=== PATIENT | female | born 1970 | race Caucasian/White ===

== ENCOUNTER → 2017-02-20 | Outpatient (REF) | payer OTHER | LOC: M LAB REF 13:24 | PROVIDERS: ATTEND Physician Assistant Medical | DX: Z12.4 Encounter for screening for malignant neoplasm of cervix (principal) ==

== ENCOUNTER → 2018-09-03 | Outpatient (REF) | payer OTHER | LOC: M LAB REF 13:09 | DX: R19.7 Diarrhea, unspecified (principal) ==

== ENCOUNTER → 2018-09-05 | Outpatient (CLI) | payer OTHER ==
[2018-09-05 09:15] LABS: BASO # 0.2 10^3/uL (0.0-0.2); BASO % 1.1 % (0.0-1.0); EOS # 0.3 10^3/uL (0.0-0.50); EOS % 1.8 % (0.0-3.0); HEMATOCRIT 44.1 % (36.0-47.0); HEMOGLOBIN 15.3 g/dl (12.0-15.5); IMMATURE GRANULOCYTE % 0.3 % (0-3.0); LYMPH # 3.9 10^3/uL (1.5-4.5); MEAN CORPUSCULAR HEMOGLOBIN 32.6 pg (27.0-33.0); MEAN CORPUSCULAR HGB CONC 34.7 g/dl (32.0-36.5); MEAN CORPUSCULAR VOLUME 93.8 fl (80.0-96.0); MONO # 1.3 10^3/uL (0.0-0.8); NEUTROPHILS # 8.3 10^3/uL (1.8-7.7); NEUTROPHILS % 59.8 % (36.0-66.0); PLATELET COUNT, AUTOMATED 397 10^3/uL (150-450); RED CELL DISTRIBUTION WIDTH 12.9 % (11.5-14.5); WHITE BLOOD COUNT 13.9 10^3/uL (4.0-10.0)
[2018-09-05 09:44] LABS: CONTROL LINE HCG INT CTR LINE PRESENT; HCG, SERUM QUALITATIVE NEGATIVE (NEGATIVE)
[2018-09-05 09:56] LABS: CONTROL LINE HPYORI INT CTR LINE PRESENT; H PYLORI QUALITATIVE IgG NEGATIVE (NEGATIVE)
[2018-09-05 10:08] LABS: ANION GAP 8 MEQ/L (8-16); BLOOD UREA NITROGEN 10 MG/DL (7-18); CALCIUM LEVEL 9.1 MG/DL (8.5-10.1); CARBON DIOXIDE LEVEL 27 MEQ/L (21-32); CHLORIDE LEVEL 104 MEQ/L (98-107); CREATININE FOR GFR 0.74 MG/DL (0.55-1.30); FREE T4 0.94 NG/DL (0.76-1.46); GLOMERULAR FILTRATION RATE > 60.0 (>58); GLUCOSE, FASTING 82 MG/DL (70-100); SODIUM LEVEL 139 MEQ/L (136-145); THYROID STIMULATING HORMONE 0.793 uIU/ML (0.358-3.740)
== END ==
LOC: M LAB 08:24
DX: R11.0 Nausea (principal); R19.7 Diarrhea, unspecified
CPT/HCPCS: 84443

== ENCOUNTER → 2018-10-14 | Outpatient (REF) | payer OTHER | LOC: M LAB REF 12:03 | PROVIDERS: ATTEND Physician Assistant | DX: R19.7 Diarrhea, unspecified (principal) ==

== ENCOUNTER → 2019-06-24 | Outpatient (REF) | payer OTHER | LOC: M LAB REF 12:08 | PROVIDERS: ATTEND Physician Assistant | DX: A04.72 Enterocolitis due to Clostridium difficile, not specified as recurrent (principal) ==

== ENCOUNTER 2019-08-18 11:25 | Day surgery (SDC) | payer OTHER ==
[~2019-08-18] VITALS: Ht 175.3 cm; Wt 79.8 kg
[~2019-08-18 11:25] MED LIST: ALIG4CAP PO; FECAL MICROBIOTA PREPARATION 250 ML BTL (J3590) XX ONE
--- NOTE | 2019-08-18 15:00 | ROOR ---
Patient Name: Mariah Burks Procedure Date: 08/18/2019 2:43 PM Date of : 1970 Age: 48 Room: [facility] Gender: Female Note Status: Finalized Procedure: Colonoscopy + Fecal Microbiota Transplant (Bacteriotherapy) Indications: Fecal transplant for treatment of recurrent Clostridium difficile diarrhea Providers: Hussein Baker MD Referring MD: Hermelinda Fritz MD Requesting Provider: Medicines: Monitored Anesthesia Care Complications: No immediate complications. Procedure: Pre-Anesthesia Assessment: - The heart rate, respiratory rate, oxygen saturations, blood pressure, adequacy of pulmonary ventilation, and response to care were monitored throughout the procedure. The Colonoscope was introduced through the anus and advanced to the cecum, identified by appendiceal orifice and ileocecal valve. The colonoscopy was performed without difficulty. The patient tolerated the procedure well. The quality of the bowel preparation was excellent. Findings: The perianal and digital rectal examinations were normal. Non-bleeding internal hemorrhoids were found during retroflexion. The hemorrhoids were small and Grade I (internal hemorrhoids that do not prolapse). Multiple small and large-mouthed diverticula were found in the recto-sigmoid colon, sigmoid colon and descending colon. The exam was otherwise without abnormality on direct and retroflexion views. The decision was made to proceed with fecal microbiota transplant (bacteriotherapy). Donor stool was supplied by [employer] (purchased frozen stool) and thawed as per protocol. Approximately 250 mL of the donor stool was instilled in the cecum. A detailed colonoscopic exam could not be performed upon scope withdrawal secondary to limited visibility from the instilled stool. This precludes the ability to screen for colon cancer, and the patient was made aware of this prior to the procedure. The exam was otherwise without abnormality on direct and retroflexion views. Impression: - Non-bleeding internal hemorrhoids. - Diverticulosis in the recto-sigmoid colon, in the sigmoid colon and in the descending colon. - The examination was otherwise normal on direct and retroflexion views. - The examination was otherwise normal on direct and retroflexion views. - Fecal Microbiota Transplant (Bacteriotherapy) performed in the cecum. - No specimens collected. - The exam was otherwise normal to the cecum. Recommendation: - Patient has a contact number available for emergencies. The signs and symptoms of potential delayed complications were discussed with the patient. Return to normal activities tomorrow. Written discharge instructions were provided to the patient. - Discharge patient to home. - Continue present medications. - Return to referring physician. - Return to GI office at appointment to be scheduled. - The findings and recommendations were discussed with the patient's family. Hussein Baker MD Hussein Baker MD 08/18/2019 3:00:39 PM Electronically signed by Hussein Baker MD Number of Addenda: 0 Note Initiated On: 08/18/2019 2:43 PM Estimated Blood Loss: Estimated blood loss: none.
[2019-08-18] MEDS ORDERED: LIDOCAINE 2% INJ 100 MG/5 ML SDV (FOR ANES.) As Ordered ONE (15:07)
[2019-08-18] MEDS ORDERED: PROPOFOL 200 MG/20 ML VIAL As Ordered ONE (15:07)
[2019-08-18 15:44] VITALS: BP 146/85
== END 2019-08-18 15:53 | disposition home or self-care (01) ==
LOC: M OPP 11:25
PROVIDERS: ATTEND Internal Medicine Gastroenterology
DX: A04.71 Enterocolitis due to Clostridium difficile, recurrent (principal); K57.30 Diverticulosis of large intestine without perforation or abscess without bleeding; K64.0 First degree hemorrhoids; Z79.2 Long term (current) use of antibiotics; F17.210 Nicotine dependence, cigarettes, uncomplicated

== ENCOUNTER → 2019-09-22 | Outpatient (REF) | payer OTHER ==
[~2019-09-22] MED LIST changes: -FECAL MICROBIOTA PREPARATION 250 ML BTL (J3590) XX ONE
== END ==
LOC: M LAB REF 17:09
PROVIDERS: ATTEND Family Medicine
DX: Z11.3 Encounter for screening for infections with a predominantly sexual mode of transmission (principal); N76.0 Acute vaginitis

== ENCOUNTER → 2019-09-24 | Outpatient (CLI) | payer OTHER ==
[2019-09-24 12:17] LABS: HIV 1&2 SCREEN CENTAUR NEGATIVE (NEGATIVE)
[2019-09-24 12:54] LABS: CHLAMYDIA DNA AMPLIFICATION NEGATIVE (NEGATIVE); GC DNA AMPLIFICATION NEGATIVE (NEGATIVE)
== END ==
LOC: M LAB 10:00
PROVIDERS: ATTEND Family Medicine
DX: Z11.3 Encounter for screening for infections with a predominantly sexual mode of transmission (principal)

== ENCOUNTER → 2019-10-13 | Outpatient (REF) | payer OTHER | LOC: M LAB REF 12:41 | PROVIDERS: ATTEND Physician Assistant Medical | DX: Z11.3 Encounter for screening for infections with a predominantly sexual mode of transmission (principal) ==

== ENCOUNTER 2019-10-17 16:48 | Emergency (ER) | payer OTHER ==
[~2019-10-17] VITALS: Ht 175.3 cm; Wt 78.2 kg
[2019-10-17] MEDS ORDERED: OMEP-221 PO (17:03)
[2019-10-17] MEDS ORDERED: GI COCKTAIL 50ML BTL(HYOSCYAMINE/MAALOX/LIDOCAINE VISCOUS)(1:3:1) PO ONE (18:00)
[2019-10-17 18:21] LABS: BASO # 0.1 10^3/uL (0.0-0.2); BASO % 0.9 % (0.0-1.0); EOS # 0.1 10^3/uL (0.0-0.5); EOS % 0.6 % (0.0-3.0); HEMATOCRIT 43.7 % (36.0-47.0); HEMOGLOBIN 14.8 g/dl (12.0-15.5); LYMPH # 3.6 10^3/uL (1.5-5.0); LYMPH % 25.4 % (24.0-44.0); MEAN CORPUSCULAR HEMOGLOBIN 32.8 pg (27.0-33.0); MEAN CORPUSCULAR HGB CONC 33.9 g/dl (32.0-36.5); MEAN CORPUSCULAR VOLUME 96.9 fl (80.0-96.0); MONO # 1.1 10^3/uL (0.0-0.8); MONO % 7.9 % (0.0-5.0); NEUTROPHILS # 9.1 10^3/uL (1.5-8.5); PLATELET COUNT, AUTOMATED 352 10^3/uL (150-450); RED BLOOD COUNT 4.51 10^6/uL (4.00-5.40)
[2019-10-17 18:31] LABS: INR 1.08; PARTIAL THROMBOPLASTIN TIME 25.1 SECONDS (25.0-38.4); PROTHROMBIN TIME 13.7 SECONDS (11.8-14.0)
[2019-10-17 18:50] LABS: ALBUMIN 3.6 GM/DL (3.2-5.2); ALT/SGPT 23 U/L (12-78); BILIRUBIN,DIRECT < 0.1 MG/DL (0.0-0.2); BILIRUBIN,TOTAL 0.3 MG/DL (0.2-1.0); BLOOD UREA NITROGEN 8 MG/DL (7-18); CALCIUM LEVEL 9.2 MG/DL (8.5-10.1); CARBON DIOXIDE LEVEL 30 MEQ/L (21-32); CHLORIDE LEVEL 102 MEQ/L (98-107); CK-MB VALUE MASS < 1.0 NG/ML (<3.6); CPK CREATINE PHOSPHOKINASE 56 U/L (26-192); CREATININE FOR GFR 0.76 MG/DL (0.55-1.30); FREE T4 0.98 NG/DL (0.76-1.46); GLOMERULAR FILTRATION RATE > 60.0 (>58); GLUCOSE, FASTING 72 MG/DL (70-100); LIPASE 111 U/L (73-393); MB/CK RELATIVE INDEX 1.79 (< OR =4); POTASSIUM SERUM 3.8 MEQ/L (3.5-5.1); SODIUM LEVEL 140 MEQ/L (136-145); TOTAL PROTEIN 6.8 GM/DL (6.4-8.2); TROPONIN I < 0.02 NG/ML (< 0.10)
[2019-10-17 23:48] LABS: CK-MB VALUE MASS < 1.0 NG/ML (<3.6); CPK CREATINE PHOSPHOKINASE 46 U/L (26-192); MB/CK RELATIVE INDEX 2.17 (< OR =4); TROPONIN I < 0.02 NG/ML (< 0.10)
[2019-10-18 00:01] VITALS: BP 116/73
--- NOTE | 2019-10-18 08:07 | REP ---
Clinical: Acute chest pain . Comparison: 10/09/2018 . Technique: PA and lateral. Findings: The mediastinum and cardiac silhouette are normal. The lung nascimento are clear and without acute consolidation, effusion, or pneumothorax. The skeletal structures are intact and normal. Impression: 1. No acute cardiopulmonary process. Electronically Signed by Rigoberto Mcmahon MD 10/18/2019 07:58 A
--- NOTE | 2019-10-18 08:36 | ECGEPIP ---
[facility] - ED Test Date: 2019-10-17 Pat Name: RIMMA BURKETT Department: Room: - Gender: Female Outreach Assistant: : 1970 Requested By: Dante Dempsey Order Number: [id number] Reading MD: Dante aJck Measurements Intervals [place] Rate: 65 P: 36 [place]: 152 QRS: 69 QRSD: 89 T: 35 QT: 371 QTc: 388 Interpretive Statements SINUS RHYTHM NO PRIORS FOR COMPARISON Electronically Signed on 10-18-2019 8:36:06 EST by Dante Jack
--- NOTE | 2019-10-18 08:39 | ECGEPIP ---
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
== END 2019-10-18 00:24 | disposition home or self-care (01) ==
LOC: M ED 16:48
DX: R07.9 Chest pain, unspecified (principal); R13.10 Dysphagia, unspecified; Z79.899 Other long term (current) drug therapy; F17.210 Nicotine dependence, cigarettes, uncomplicated

== ENCOUNTER 2019-11-15 12:09 | Day surgery (SDC) | payer OTHER ==
[~2019-11-15] VITALS: Ht 175.3 cm; Wt 78.0 kg
[~2019-11-15 12:09] MED LIST changes: +ANTASUS PO; +FAMO20TA PO; +NS 1,000 ML IV ONE; +OMEP-221 PO
[2019-11-15] MEDS ORDERED: fentaNYL 100 MCG/2 ML INJECTION (J3010) As Ordered ONE (13:38)
[2019-11-15] MEDS ORDERED: LIDOCAINE 2% INJ 100 MG/5 ML SYRINGE As Ordered ONE (13:38)
[2019-11-15] MEDS ORDERED: propofoL 200 MG/20 ML VIAL As Ordered ONE (13:38)
--- NOTE | 2019-11-15 13:51 | ROOR ---
Patient Name: Mariah Burks Procedure Date: 11/15/2019 1:36 PM Date of : 1970 Age: 49 Room: [facility] Gender: Female Note Status: Finalized Procedure: Upper Endoscopy + Biopsies Indications: Dysphagia, Heartburn Providers: Hussein Baker MD Referring MD: Hermelinda Fritz MD Requesting Provider: Medicines: Monitored Anesthesia Care Complications: No immediate complications. Procedure: Pre-Anesthesia Assessment: - The heart rate, respiratory rate, oxygen saturations, blood pressure, adequacy of pulmonary ventilation, and response to care were monitored throughout the procedure. The Endoscope was introduced through the mouth, and advanced to the second part of duodenum. The upper GI endoscopy was accomplished without difficulty. The patient tolerated the procedure well. Findings: The Z-line was variable and was found 40 cm from the incisors. Multiple biopsies were obtained with cold forceps for evaluation to rule out Ware's Esophagus randomly at the gastroesophageal junction. A small hiatal hernia was present. No other significant abnormalities were identified in a careful examination of the stomach. The exam of the duodenum was otherwise normal. Impression: - Z-line variable, 40 cm from the incisors. - Small hiatal hernia. - Multiple biopsies were obtained at the gastroesophageal junction. - The examination was otherwise normal. Recommendation: - Patient has a contact number available for emergencies. The signs and symptoms of potential delayed complications were discussed with the patient. Return to normal activities tomorrow. Written discharge instructions were provided to the patient. - High fiber diet. - Discharge patient to home. - Follow an antireflux regimen. - Continue present medications. - Await pathology results. - Telephone GI clinic for pathology results in 1 week. - Return to referring physician. - The findings and recommendations were discussed with the patient's family. Hussein Baker MD Hussein Baker MD 11/15/2019 1:50:59 PM Electronically signed by Hussein Baker MD Number of Addenda: 0 Note Initiated On: 11/15/2019 1:36 PM Estimated Blood Loss: Estimated blood loss: none.
[2019-11-15 14:05] VITALS: BP 140/83
== END 2019-11-15 14:18 | disposition home or self-care (01) ==
LOC: M OPP 12:09
PROVIDERS: ATTEND Internal Medicine Gastroenterology
DX: K22.8 Other specified diseases of esophagus (principal); K44.9 Diaphragmatic hernia without obstruction or gangrene; R13.10 Dysphagia, unspecified; R12 Heartburn; K21.9 Gastro-esophageal reflux disease without esophagitis; F17.210 Nicotine dependence, cigarettes, uncomplicated; Z79.2 Long term (current) use of antibiotics
CPT/HCPCS: 43239; 88305; J3010

== ENCOUNTER → 2019-11-26 | Outpatient (CLI) | payer OTHER ==
[~2019-11-26] MED LIST changes: +E-Z-GAS II EFFERVESCENT PACKET (SODIUM BICARB./CITRIC ACID/SIMETHICONE) As Ordered ONE; +E-Z-HD 98% w/w 340GM SUSP BTL As Ordered ONE; +E-Z-PAQUE 96% w/w SUSP 176GM BTL As Ordered ONE; -NS 1,000 ML IV ONE
--- NOTE | 2019-11-26 14:38 | REP ---
Examination Requested: Esophagram Barium Swallow Reason For Exam/Comment: Dysphasia/heartburn Esophagram: The procedure was performed MAURIZIO Leon, under the direct supervision of Dr. Beaver. The images were reviewed with Dr. Beaver. A single PA chest x-ray is submitted as a clarifier operator helper film. The superior mediastinal structures are midline. The heart size is within normal limits. The lungs are clear. Liquid barium and gas producing granules were given in the erect position as well as liquid barium in the prone oblique position, in order to perform a double contrast esophagram examination. Oral and pharyngeal stages of the examination were unremarkable. Esophageal transport is efficient and there is no esophagitis, stricture, or mucosal ring noted. There is a small hiatal hernia noted. There is gastroesophageal reflux to just inferior to inferior to the dianna. Impression: 1. Small hiatal hernia. 2. Gastroesophageal reflux to the level inferior to the dianna. 0.3 minutes of fluoroscopy time was utilized for this procedure. Some fluoroscopic images are performed with last image hold technology. These images require no additional radiation. Reviewed by MAURIZIO Wagoner 11/26/2019 01:53 P Electronically Signed by Manuelito Beaver MD 11/26/2019 02:29 P
== END ==
LOC: M RAD 08:43
PROVIDERS: ATTEND Internal Medicine Gastroenterology
DX: K44.9 Diaphragmatic hernia without obstruction or gangrene (principal); K21.9 Gastro-esophageal reflux disease without esophagitis

== ENCOUNTER → 2020-06-27 | Outpatient (CLI) | payer OTHER ==
[~2020-06-27] MED LIST changes: -E-Z-GAS II EFFERVESCENT PACKET (SODIUM BICARB./CITRIC ACID/SIMETHICONE) As Ordered ONE; -E-Z-HD 98% w/w 340GM SUSP BTL As Ordered ONE; -E-Z-PAQUE 96% w/w SUSP 176GM BTL As Ordered ONE
--- NOTE | 2020-07-11 11:41 | REP ---
GALLBLADDER ULTRASOUND: CLINICAL: Right upper quadrant pain. TECHNIQUE: Real time, diallo scale ultrasound examination using curved array transducer. FINDINGS: The liver and visualized pancreas are normal in contour, size and echogenicity without focal hepatic or pancreatic lesion identified. The gallbladder is normal and without gallstones, wall thickening or pericholecystic fluid. No biliary ductal dilatation is appreciated and the common bile duct measures 4.3 mm diameter. The right kidney is normal in reniform shape without hydronephrosis and measures 10.9 x 5.2 x 5.2 cm. No ascites in the visualized right upper quadrant. IMPRESSION: Normal gallbladder and right upper quadrant ultrasound. MTDD
== END ==
LOC: M RAD 08:44
PROVIDERS: ATTEND Internal Medicine Gastroenterology
DX: R10.10 Upper abdominal pain, unspecified (principal)

== ENCOUNTER → 2020-08-14 | Outpatient (CLI) | payer OTHER ==
[~2020-08-14] MED LIST changes: +GASTROGRAFIN SOLUTION 30ML (Q9963) As Ordered ONE; +ISOVUE-370 76% 100ML VIAL As Ordered ONE
--- NOTE | 2020-08-14 15:48 | REP ---
INDICATION: GERD, UPPER ABD PAIN. COMPARISON: None. TECHNIQUE: 100 cc Isovue 370. FINDINGS: The pre contrast enhanced portion of the examination shows a patent splenic densities to be within normal limits. There are no cholelithiasis. There are no nephroliths. The contrast enhanced portion of the examination shows the liver, gallbladder, spleen, pancreas, adrenal glands, and right kidney to be within normal limits. Within the superior pole of the left kidney there is a round 1.2 cm size focal area of low density which has slightly higher density than water Hounsfield unit readings. The abdominal aorta and para-aortic regions are within normal limits. There is no free fluid or free air. The bowel loops and the mesenteries are within normal limits. There is no mass or adenopathy. Mixed enhancement and density is seen in the uterus possibly secondary to early myomatous changes. The lung bases are clear Bone window technique throughout the exam shows the osseous structures to be within normal limits. IMPRESSION: 1. 1.2 cm sized Bosniak class 1 left renal cyst 2. Suspect early uterine myomatous changes. 3. No acute intra-abdominal or intrapelvic disease. <Electronically signed by Heron Marsh > 08/14/20 [id number]
== END ==
LOC: M RAD 13:36
PROVIDERS: ATTEND Internal Medicine Gastroenterology
DX: K21.9 Gastro-esophageal reflux disease without esophagitis (principal); R10.10 Upper abdominal pain, unspecified

== ENCOUNTER → 2021-02-05 | Outpatient (REF) | payer OTHER ==
[~2021-02-05] MED LIST changes: -GASTROGRAFIN SOLUTION 30ML (Q9963) As Ordered ONE; -ISOVUE-370 76% 100ML VIAL As Ordered ONE
== END ==
LOC: M LAB REF 17:02
PROVIDERS: ATTEND Nurse Practitioner Family
DX: R30.0 Dysuria (principal)

== ENCOUNTER 2021-03-06 20:45 | Emergency (ER) | payer OTHER ==
[2021-03-06] MEDS ORDERED: ONDANSETRON 4MG/2ML VIAL IV ONE (21:25)
[2021-03-06] MEDS ORDERED: MORPHINE 2 MG/ML 1ML VIAL (J2270) IV ONE (21:25)
[2021-03-06 21:47] LABS: BASO # 0.1 10^3/uL (0.0-0.2); BASO % 0.4 % (0.0-1.0); EOS # 0.1 10^3/uL (0.0-0.5); EOS % 0.2 % (0.0-3.0); HEMATOCRIT 45.9 % (36.0-47.0); HEMOGLOBIN 15.4 g/dl (12.0-15.5); LYMPH # 2.6 10^3/uL (1.5-5.0); LYMPH % 8.1 % (24.0-44.0); MEAN CORPUSCULAR HEMOGLOBIN 31.4 pg (27.0-33.0); MEAN CORPUSCULAR HGB CONC 33.6 g/dl (32.0-36.5); MEAN CORPUSCULAR VOLUME 93.7 fl (80.0-96.0); MONO # 2.5 10^3/uL (0.0-0.8); MONO % 7.8 % (2.0-8.0); NEUTROPHILS # 26.8 10^3/uL (1.5-8.5); PLATELET COUNT, AUTOMATED 475 10^3/uL (150-450)
[2021-03-06] MEDS ORDERED: PIPERACILLIN/TAZOBACTAM SOD 3.375 GM in D5W MINI-BAG PLUS 50 ML IV ONE (22:05)
[2021-03-06 22:06] LABS: WHITE BLOOD COUNT 32.3 10^3/uL (4.0-10.0)
[2021-03-06 22:10] LABS: ALT/SGPT 23 U/L (12-78); BILIRUBIN,DIRECT < 0.1 MG/DL (0.0-0.2); BILIRUBIN,TOTAL 0.3 MG/DL (0.2-1.0); BLOOD UREA NITROGEN 16 MG/DL (7-18); CALCIUM LEVEL 9.7 MG/DL (8.5-10.1); CARBON DIOXIDE LEVEL 29 MEQ/L (21-32); CHLORIDE LEVEL 105 MEQ/L (98-107); CREATININE FOR GFR 0.88 MG/DL (0.55-1.30); GLOMERULAR FILTRATION RATE > 60.0 (>58); GLUCOSE, FASTING 102 MG/DL (70-100); LIPASE 251 U/L (73-393); POTASSIUM SERUM 3.8 MEQ/L (3.5-5.1); SODIUM LEVEL 140 MEQ/L (136-145); TOTAL PROTEIN 7.6 GM/DL (6.4-8.2)
[2021-03-06] MEDS ORDERED: NS 1,000 ML IV ONE (22:10)
[2021-03-06] MEDS ORDERED: ISOVUE-370 76% 100ML VIAL As Ordered ONE (22:56)
--- NOTE | 2021-03-07 00:08 | REPVR ---
PROCEDURE INFORMATION: Exam: CT Abdomen And Pelvis With Contrast Exam date and time: 03/06/2021 9:55 PM Age: 50 years old Clinical indication: Abdominal pain; Generalized; Additional info: Abdominal pain, bloating, eval for cholecystitis, colangitis TECHNIQUE: Imaging protocol: Computed tomography of the abdomen and pelvis with contrast. Radiation optimization: All CT scans at this facility use at least one of these dose optimization techniques: automated exposure control; mA and/or kV adjustment per patient size (includes targeted exams where dose is matched to clinical indication); or iterative reconstruction. Contrast material: ISO; Contrast volume: 100 ml; Contrast route: INTRAVENOUS (IV); COMPARISON: CT ABD PELVIS W/O FOL BY WIT 08/14/2020 3:30 PM FINDINGS: LUNG BASES: Mild dependent atelectasis. VASCULAR: Major vasculature is within normal limits. PERITONEAL : No free air or free fluid. GI: No hiatal hernia. The stomach contains some fluid and gas. The stomach is not sufficiently distended to evaluate wall thickening or for complete diagnostic evaluation by this exam. Clinical correlation is advised. Nonspecific fluid-filled loops of small bowel are seen. No appearance of a small-bowel obstruction. No focal mesenteric inflammation. Small nonspecific mesenteric lymph nodes are noted. Mild gastroenteritis cannot be excluded by this study. There is semisolid appearing fecal material and fluid within portions of the colon and rectum. This is abnormal and could be correlated with symptoms and causes of diarrhea. No pericolonic or perirectal inflammatory stranding is seen. No evidence of acute diverticulitis. The appendix does not appear to be inflamed. HEPATOBILIARY, PANCREAS, SPLEEN: The liver is not enlarged. Homogeneous hepatic enhancement. Attenuation of the liver is suggestive of mild steatosis. The gallbladder is slightly distended, measuring 4 cm transversely. No calcified gallstones are seen. No biliary dilation. No pericholecystic fluid or stranding. No pancreatic inflammation. Spleen not enlarged. ADRENALS, KIDNEYS, BLADDER, RETROPERITONEAL: Adrenals within normal limits. No hydronephrosis. Symmetric renal enhancement. No perinephric stranding or fluid. There is a 15 mm hypodense lesion at the upper pole of the left kidney. This appears similar to the prior study. Postcontrast attenuation is 15 Hounsfield units, consistent with a cyst. No further imaging workup for this lesion is necessary, based upon this appearance. No perivesical stranding. Small nonspecific retroperitoneal lymph nodes. No bladder wall thickening. PELVIC: Heterogeneous lobular appearing uterus, likely with multiple fibroid changes, the largest single fibroid measuring 4.7 cm. MUSCULOSKELETAL: A few small sclerotic lesions are seen within the pelvis, too small to further characterize possibly representing bone islands. Facet arthropathy lumbar spine. Mild bony degenerative changes of the pelvis. IMPRESSION: Fluid within portions of the colon and rectum. This is abnormal and could be correlated with symptoms and causes of diarrhea. Gastrointestinal findings discussed above in detail. Slightly distended gallbladder but no other CT evidence for acute cholecystitis. Fibroid appearing uterus. Other findings discussed above. Electronically signed by: Igor Aviles On 03/07/2021 00:08:02 AM
[2021-03-07] MEDS ORDERED: ONDANSETRON 4 MG ORAL DISINTEGRATING TAB PO ONE (00:40)
[2021-03-07] MEDS ORDERED: DICYCLOMINE 10 MG CAP PO ONE (00:40)
[2021-03-07 01:05] VITALS: BP 100/60
== END 2021-03-07 01:10 | disposition home or self-care (01) ==
LOC: M ED 20:45
DX: K52.9 Noninfective gastroenteritis and colitis, unspecified (principal); D72.829 Elevated white blood cell count, unspecified; N85.8 Other specified noninflammatory disorders of uterus; M46.96 Unspecified inflammatory spondylopathy, lumbar region; N28.9 Disorder of kidney and ureter, unspecified; Z87.891 Personal history of nicotine dependence
CPT/HCPCS: 74177; 80048; 80076; 83605; 83690; 85025; 87040; 96365; 96375; 99284; J2270; J2405; J2543; Q0162; Q9967

== ENCOUNTER → 2021-03-10 | Outpatient (REF) | payer OTHER | LOC: M LAB REF 07:10 | PROVIDERS: ATTEND Specialist | DX: K21.9 Gastro-esophageal reflux disease without esophagitis (principal); R19.7 Diarrhea, unspecified ==

== ENCOUNTER → 2021-11-30 | Outpatient (REF) | payer OTHER ==
[~2021-11-30] MED LIST changes: -OMEP-221 PO; +OMEP40CA5 PO
[2021-11-30 12:58] LABS: HEMOGLOBIN 14.5 g/dl (12.0-15.5); MEAN CORPUSCULAR HEMOGLOBIN 30.9 pg (27.0-33.0); MEAN CORPUSCULAR VOLUME 93.6 fl (80.0-96.0); PLATELET COUNT, AUTOMATED 337 10^3/uL (150-450)
[2021-11-30 13:22] LABS: ERYTHROCYTE SEDIMENTATION RATE 23 mm/hr (0-30)
[2021-11-30 13:30] LABS: ALBUMIN 4.1 GM/DL (3.2-5.2); ALT/SGPT 19 U/L (12-78); AMYLASE 45 U/L (25-115); BILIRUBIN,TOTAL 0.3 MG/DL (0.2-1.0); BLOOD UREA NITROGEN 11 MG/DL (7-18); C REACTIVE PROTEIN QUANTITATIV 0.91 MG/DL (0.00-0.30); CALCIUM LEVEL 9.3 MG/DL (8.5-10.1); CARBON DIOXIDE LEVEL 30 MEQ/L (21-32); CHLORIDE LEVEL 104 MEQ/L (98-107); CREATININE FOR GFR 0.79 MG/DL (0.55-1.30); GLOMERULAR FILTRATION RATE > 60.0 (>51); GLUCOSE, FASTING 89 MG/DL (70-100); LIPASE 113 U/L (73-393); POTASSIUM SERUM 4.2 MEQ/L (3.5-5.1); SODIUM LEVEL 140 MEQ/L (136-145); TOTAL PROTEIN 7.7 GM/DL (6.4-8.2)
== END ==
LOC: M LABDRWAD 12:14
PROVIDERS: ATTEND Internal Medicine Gastroenterology
DX: R10.11 Right upper quadrant pain (principal); K21.9 Gastro-esophageal reflux disease without esophagitis; K59.00 Constipation, unspecified

== ENCOUNTER → 2021-12-11 | Outpatient (CLI) | payer OTHER | LOC: M RAD 07:08 | PROVIDERS: ATTEND Student in an Organized Health Care Education/Training Program | DX: R10.11 Right upper quadrant pain (principal); N28.1 Cyst of kidney, acquired; K21.9 Gastro-esophageal reflux disease without esophagitis; K59.00 Constipation, unspecified ==

== ENCOUNTER → 2022-04-28 | Outpatient (CLI) | payer OTHER | LOC: M LABSMTC 10:04 | PROVIDERS: ATTEND Internal Medicine Gastroenterology | DX: Z01.812 Encounter for preprocedural laboratory examination (principal); Z11.52 Encounter for screening for COVID-19 ==

== ENCOUNTER → 2022-05-21 | Outpatient (CLI) | payer OTHER | LOC: M WHC 06:52 | PROVIDERS: ATTEND Nurse Practitioner Family | DX: Z12.31 Encounter for screening mammogram for malignant neoplasm of breast (principal) ==

== ENCOUNTER → 2022-08-06 | Outpatient (CLI) | payer OTHER | LOC: M RAD 10:47 | PROVIDERS: ATTEND Family Medicine | DX: M25.571 Pain in right ankle and joints of right foot (principal) ==

== ENCOUNTER → 2022-09-17 | Outpatient (REF) | payer OTHER | LOC: M LAB REF 16:56 | PROVIDERS: ATTEND Nurse Practitioner Family | DX: R35.0 Frequency of micturition (principal) ==

== ENCOUNTER → 2022-09-28 | Outpatient (CLI) | payer OTHER ==
[2022-09-28 09:42] LABS: APPEARANCE, URINE MANUAL CLEAR (CLEAR); BASO # 0.1 10^3/uL (0.0-0.2); BASO % 1.1 % (0.0-1.0); COLOR, URINE MANUAL YELLOW (YELLOW); EOS # 0.1 10^3/uL (0.0-0.5); EOS % 0.7 % (0.0-3.0); HEMATOCRIT 45.4 % (36.0-47.0); HEMOGLOBIN 15.2 g/dl (12.0-15.5); LYMPH # 4.2 10^3/uL (1.5-5.0); LYMPH % 34.5 % (24.0-44.0); MEAN CORPUSCULAR HGB CONC 33.5 g/dl (32.0-36.5); MEAN CORPUSCULAR VOLUME 92.7 fl (80.0-96.0); MONO # 0.7 10^3/uL (0.0-0.8); MONO % 5.9 % (2.0-8.0); NEUTROPHILS # 6.9 10^3/uL (1.5-8.5); NEUTROPHILS % 57.6 % (36.0-66.0); PLATELET COUNT, AUTOMATED 409 10^3/uL (150-450); SPECIFIC GRAVITY,URINE MANUAL 1.015 (1.002-1.035)
[2022-09-28 09:43] LABS: BILIRUBIN, URINE MANUAL NEGATIVE (NEGATIVE); BLOOD URINE MANUAL POSITIVE (NEGATIVE); GLUCOSE, URINE (UA) MANUAL NEGATIVE (NEGATIVE); KETONE, URINE MANUAL NEGATIVE (NEGATIVE); LEUKOCYTE ESTERASE, URINE MAN NEGATIVE (NEGATIVE); NITRITE, URINE MANUAL NEGATIVE (NEGATIVE); PROTEIN, URINE MANUAL NEGATIVE (NEGATIVE); UROBILINOGEN, URINE MANUAL NORMAL (NORMAL)
[2022-09-28 10:04] LABS: SQUAMOUS EPITHELIAL CELL URINE MOD AMOUNT /hpf (SMALL AMT); WBC, URINE 0-1 /hpf (0-3)
[2022-09-28 10:05] LABS: BACTERIA, URINE MOD AMOUNT; HYALINE CAST, URINE NONE SEEN /lpf (0-1)
[2022-09-28 10:09] LABS: FREE T4 1.01 NG/DL (0.89-1.76); THYROID STIMULATING HORMONE 1.202 uIU/ML (0.55-4.78)
[2022-09-28 10:12] LABS: BLOOD UREA NITROGEN 12 MG/DL (9-23); CALCIUM LEVEL 9.5 MG/DL (8.5-10.1); CARBON DIOXIDE LEVEL 28 MMOL/L (20-31); CHLORIDE LEVEL 105 MMOL/L (98-107); CREATININE FOR GFR 0.74 MG/DL (0.55-1.30); GLOMERULAR FILTRATION RATE > 60.0 (>51); GLUCOSE, FASTING 92 MG/DL (60-100); POTASSIUM SERUM 4.2 MMOL/L (3.5-5.1); SODIUM LEVEL 142 MMOL/L (136-145)
== END ==
LOC: M LAB 09:00
PROVIDERS: ATTEND Nurse Practitioner Family
DX: R35.0 Frequency of micturition (principal)

== ENCOUNTER → 2022-09-28 | Outpatient (CLI) | payer OTHER ==
[2022-09-28 10:06] LABS: ALKALINE PHOSPHATASE 113 U/L (46-116); ALT/SGPT 24 U/L (7.0-40); AST/SGOT 23 U/L (<34); BILIRUBIN,DIRECT < 0.1 MG/DL (<0.4); BILIRUBIN,TOTAL 0.4 MG/DL (0.3-1.2); TOTAL PROTEIN 7.2 G/DL (5.7-8.2)
== END ==
LOC: M LAB 09:02
PROVIDERS: ATTEND Internal Medicine Gastroenterology
DX: K76.0 Fatty (change of) liver, not elsewhere classified (principal); R10.11 Right upper quadrant pain; K21.9 Gastro-esophageal reflux disease without esophagitis; K64.9 Unspecified hemorrhoids; K59.00 Constipation, unspecified

== ENCOUNTER → 2022-10-31 | Outpatient (REF) | payer OTHER | LOC: M LAB REF 16:49 | PROVIDERS: ATTEND Registered Nurse | DX: R30.0 Dysuria (principal) ==

== ENCOUNTER → 2022-11-12 | Outpatient (CLI) | payer OTHER ==
[~2022-11-12] MED LIST changes: +ISOVUE-370 76% 100ML VIAL As Ordered ONE
== END ==
LOC: M RAD 14:50
PROVIDERS: ATTEND Registered Nurse
DX: R31.9 Hematuria, unspecified (principal); N28.1 Cyst of kidney, acquired; Z90.49 Acquired absence of other specified parts of digestive tract

== ENCOUNTER → 2022-11-29 | Outpatient (CLI) | payer OTHER ==
[~2022-11-29] MED LIST changes: -ISOVUE-370 76% 100ML VIAL As Ordered ONE
== END ==
LOC: M RAD 09:26
PROVIDERS: ATTEND Nurse Practitioner Family
DX: R10.31 Right lower quadrant pain (principal)

== ENCOUNTER → 2022-11-29 | Outpatient (CLI) | payer OTHER | LOC: M LAB 09:29 | PROVIDERS: ATTEND Registered Nurse | DX: R30.0 Dysuria (principal) ==

== ENCOUNTER → 2022-12-11 | Outpatient (CLI) | payer OTHER | LOC: M RAD 07:58 | PROVIDERS: ATTEND Internal Medicine Gastroenterology | DX: K76.0 Fatty (change of) liver, not elsewhere classified (principal); R10.11 Right upper quadrant pain; K21.9 Gastro-esophageal reflux disease without esophagitis; K64.9 Unspecified hemorrhoids; K59.00 Constipation, unspecified ==

== ENCOUNTER 2023-01-08 09:55 | Emergency (ER) | payer OTHER ==
[~2023-01-08] VITALS: Ht 172.7 cm; Wt 85.0 kg
[~2023-01-08 09:55] MED LIST changes: -OMEP40CA5
[2023-01-08] MEDS ORDERED: OMEP40CA5 (10:09)
[2023-01-08 12:02] VITALS: BP 114/72
== END 2023-01-08 12:05 | disposition home or self-care (01) ==
LOC: M ED 09:55
DX: R55 Syncope and collapse (principal); R00.1 Bradycardia, unspecified; K21.9 Gastro-esophageal reflux disease without esophagitis; Z87.891 Personal history of nicotine dependence; Z79.83 Long term (current) use of bisphosphonates; Z79.899 Other long term (current) drug therapy

== ENCOUNTER → 2023-01-08 | Outpatient (CLI) | payer OTHER ==
[~2023-01-08] MED LIST changes: +OMEP40CA5
[2023-01-08 10:48] LABS: CHOLESTEROL RISK RATIO 2.79 (<5); HDL CHOLESTEROL 72.6 MG/DL (>40); LDL CHOLESTEROL 104.4 MG/DL (<100); NON-HDL-C 130.4 MG/DL
== END ==
LOC: M LAB 09:19
PROVIDERS: ATTEND Nurse Practitioner Family
DX: Z00.00 Encounter for general adult medical examination without abnormal findings (principal); R10.84 Generalized abdominal pain

== ENCOUNTER → 2023-02-24 | Outpatient (REF) | payer OTHER ==
[~2023-02-24] MED LIST changes: +OMEP40CA5
== END ==
LOC: M LAB REF 12:41
PROVIDERS: ATTEND Internal Medicine Gastroenterology
DX: K21.9 Gastro-esophageal reflux disease without esophagitis (principal); K58.9 Irritable bowel syndrome, unspecified; R14.3 Flatulence; K62.89 Other specified diseases of anus and rectum; K76.0 Fatty (change of) liver, not elsewhere classified

== ENCOUNTER → 2023-06-02 | Outpatient (REF) | payer OTHER | LOC: M LAB REF 17:39 | PROVIDERS: ATTEND Registered Nurse | DX: Z12.4 Encounter for screening for malignant neoplasm of cervix (principal); R87.610 Atypical squamous cells of undetermined significance on cytologic smear of cervix (ASC-US) | CPT/HCPCS: 87624; G0123 ==

== ENCOUNTER → 2023-07-14 | Outpatient (CLI) | payer OTHER ==
[~2023-07-14] MED LIST changes: +ISOVUE-370 76% 100ML VIAL As Ordered ONE
== END ==
LOC: M RAD 16:25
PROVIDERS: ATTEND Nurse Practitioner Family
DX: R91.8 Other nonspecific abnormal finding of lung field (principal)
CPT/HCPCS: 71260; Q9967

== ENCOUNTER → 2023-10-11 | Outpatient (CLI) | payer OTHER ==
[~2023-10-11] MED LIST changes: -ISOVUE-370 76% 100ML VIAL As Ordered ONE
[2023-10-11 11:17] LABS: BASO # 0.1 10^3/uL (0.0-0.2); BASO % 0.9 % (0.0-1.0); EOS # 0.1 10^3/uL (0.0-0.5); EOS % 0.7 % (0.0-3.0); HEMATOCRIT 44.3 % (36.0-47.0); HEMOGLOBIN 14.7 g/dl (12.0-15.5); LYMPH # 3.4 10^3/uL (1.5-5.0); LYMPH % 31.1 % (24.0-44.0); MEAN CORPUSCULAR HEMOGLOBIN 31.2 pg (27.0-33.0); MEAN CORPUSCULAR HGB CONC 33.2 g/dl (32.0-36.5); MEAN CORPUSCULAR VOLUME 94.1 fl (80.0-96.0); MONO # 0.8 10^3/uL (0.0-0.8); MONO % 6.9 % (2.0-8.0); NEUTROPHILS # 6.7 10^3/uL (1.5-8.5); NEUTROPHILS % 60.1 % (36.0-66.0); PLATELET COUNT, AUTOMATED 381 10^3/uL (150-450); RED BLOOD COUNT 4.71 10^6/uL (4.00-5.40); WHITE BLOOD COUNT 11.1 10^3/uL (4.0-10.0)
[2023-10-11 11:46] LABS: FREE T4 0.93 NG/DL (0.89-1.76); THYROID STIMULATING HORMONE 1.385 uIU/ML (0.55-4.78)
[2023-10-11 11:50] LABS: ALKALINE PHOSPHATASE 95 U/L (46-116); ALT/SGPT 30 U/L (7.0-40); AST/SGOT 23 U/L (<34); BILIRUBIN,TOTAL 0.3 MG/DL (0.3-1.2); BLOOD UREA NITROGEN 13 MG/DL (9-23); CALCIUM LEVEL 10.2 MG/DL (8.5-10.1); CARBON DIOXIDE LEVEL 28 MMOL/L (20-31); CHLORIDE LEVEL 105 MMOL/L (98-107); CREATININE FOR GFR 0.74 MG/DL (0.55-1.30); GLOMERULAR FILTRATION RATE > 60.0 (>51); GLUCOSE, FASTING 83 MG/DL (60-100); POTASSIUM SERUM 4.3 MMOL/L (3.5-5.1); SODIUM LEVEL 142 MMOL/L (136-145)
== END ==
LOC: M LAB 10:05
PROVIDERS: ATTEND Nurse Practitioner Family
DX: R07.0 Pain in throat (principal)

== ENCOUNTER → 2024-01-05 | Outpatient (CLI) | payer OTHER | LOC: M WHC 09:44 | PROVIDERS: ATTEND Nurse Practitioner Family | DX: Z12.31 Encounter for screening mammogram for malignant neoplasm of breast (principal) ==

== ENCOUNTER → 2024-02-10 | Outpatient (CLI) | payer OTHER | LOC: M RAD 10:33 | PROVIDERS: ATTEND Registered Nurse | DX: M25.521 Pain in right elbow (principal) ==

== ENCOUNTER → 2024-03-11 | Outpatient (CLI) | payer OTHER | LOC: M RAD 09:50 | PROVIDERS: ATTEND Internal Medicine | DX: K58.9 Irritable bowel syndrome, unspecified (principal); K21.9 Gastro-esophageal reflux disease without esophagitis; R13.10 Dysphagia, unspecified; R14.3 Flatulence ==

== ENCOUNTER → 2024-06-08 | Outpatient (REF) | payer OTHER ==
[2024-06-10 14:43] LABS: HPV APTIMA Not Detected (Not Detected)
== END ==
LOC: M LAB REF 17:45
PROVIDERS: ATTEND Registered Nurse
DX: Z01.419 Encounter for gynecological examination (general) (routine) without abnormal findings (principal)
CPT/HCPCS: 87624; G0123

== ENCOUNTER → 2024-06-26 | Outpatient (CLI) | payer OTHER ==
[2024-06-26 10:43] LABS: BASO # 0.1 10^3/uL (0.0-0.2); BASO % 1.1 % (0.0-1.0); EOS # 0.1 10^3/uL (0.0-0.5); EOS % 1.2 % (0.0-3.0); HEMATOCRIT 42.4 % (36.0-47.0); HEMOGLOBIN 14.3 g/dl (12.0-15.5); LYMPH # 3.5 10^3/uL (1.5-5.0); LYMPH % 34.8 % (24.0-44.0); MEAN CORPUSCULAR HEMOGLOBIN 31.4 pg (27.0-33.0); MEAN CORPUSCULAR HGB CONC 33.7 g/dl (32.0-36.5); MEAN CORPUSCULAR VOLUME 93.2 fl (80.0-96.0); MONO # 0.8 10^3/uL (0.0-0.8); MONO % 7.5 % (2.0-8.0); NEUTROPHILS # 5.5 10^3/uL (1.5-8.5); NEUTROPHILS % 55.1 % (36.0-66.0); PLATELET COUNT, AUTOMATED 369 10^3/uL (150-450); RED BLOOD COUNT 4.55 10^6/uL (4.00-5.40)
[2024-06-26 11:12] LABS: ALBUMIN 3.9 G/DL (3.2-5.2); ALKALINE PHOSPHATASE 95 U/L (46-116); ALT/SGPT 27 U/L (7.0-40); AST/SGOT 19 U/L (<34); BILIRUBIN,TOTAL 0.5 MG/DL (0.3-1.2); BLOOD UREA NITROGEN 14 MG/DL (9-23); CALCIUM LEVEL 9.6 MG/DL (8.5-10.1); CARBON DIOXIDE LEVEL 30 MMOL/L (20-31); CHLORIDE LEVEL 108 MMOL/L (98-107); CHOLESTEROL LEVEL 191 MG/DL (<200); CHOLESTEROL RISK RATIO 3.36 (<5); CREATININE FOR GFR 0.76 MG/DL (0.55-1.30); GLOMERULAR FILTRATION RATE > 60.0 (>51); GLUCOSE, FASTING 87 MG/DL (60-100); HDL CHOLESTEROL 56.7 MG/DL (>40); LDL CHOLESTEROL 102.1 MG/DL (<100); NON-HDL-C 134.3 MG/DL; POTASSIUM SERUM 4.2 MMOL/L (3.5-5.1); SODIUM LEVEL 144 MMOL/L (136-145); TRIGLYCERIDES LEVEL 161 MG/DL (<150)
== END ==
LOC: M LAB 08:44
PROVIDERS: ATTEND Registered Nurse
DX: Z00.00 Encounter for general adult medical examination without abnormal findings (principal)

== ENCOUNTER → 2024-07-20 | Outpatient (CLI) | payer OTHER ==
[~2024-07-20] MED LIST changes: +ISOVUE-370 76% 100ML VIAL ONE
== END ==
LOC: M PLAIMG 07:35
PROVIDERS: ATTEND Registered Nurse
DX: R91.8 Other nonspecific abnormal finding of lung field (principal)
CPT/HCPCS: 71260; Q9967

== ENCOUNTER → 2024-10-02 | Outpatient (CLI) | payer OTHER ==
[~2024-10-02] MED LIST changes: -ISOVUE-370 76% 100ML VIAL ONE
[2024-10-02 11:46] LABS: LIPASE 45 U/L (12-53)
[2024-10-02 11:48] LABS: BLOOD UREA NITROGEN 14 MG/DL (9-23); CALCIUM LEVEL 9.8 MG/DL (8.5-10.1); CARBON DIOXIDE LEVEL 30 MMOL/L (20-31); CHLORIDE LEVEL 103 MMOL/L (98-107); CREATININE FOR GFR 0.73 MG/DL (0.55-1.30); GLOMERULAR FILTRATION RATE > 60.0 (>51); GLUCOSE, FASTING 80 MG/DL (60-100); MAGNESIUM LEVEL 1.9 MG/DL (1.8-2.4); POTASSIUM SERUM 4.2 MMOL/L (3.5-5.1); SODIUM LEVEL 141 MMOL/L (136-145)
== END ==
LOC: M LAB 09:06
PROVIDERS: ATTEND Internal Medicine Gastroenterology
DX: R10.11 Right upper quadrant pain (principal); K21.9 Gastro-esophageal reflux disease without esophagitis; R14.3 Flatulence; K64.9 Unspecified hemorrhoids; K58.9 Irritable bowel syndrome, unspecified; K62.89 Other specified diseases of anus and rectum; R31.9 Hematuria, unspecified

== ENCOUNTER → 2024-12-04 | Outpatient (CLI) | payer OTHER ==
[~2024-12-04] MED LIST changes: -ALIG4CAP PO; +ALIG4CAP3 PO
[2024-12-04 10:46] LABS: FERRITIN 39.8 NG/ML (7.3-270.7)
== END ==
LOC: M LAB 09:14
PROVIDERS: ATTEND Physician Assistant
DX: L73.9 Follicular disorder, unspecified (principal)

== ENCOUNTER → 2025-06-11 | Outpatient (CLI) | payer OTHER ==
[2025-06-11 09:40] LABS: BASO # 0.1 10^3/uL (0.0-0.2); BASO % 1.1 % (0.0-1.0); EOS # 0.1 10^3/uL (0.0-0.5); EOS % 1.1 % (0.0-3.0); LYMPH # 2.9 10^3/uL (1.5-5.0); LYMPH % 30.7 % (24.0-44.0); MONO # 0.6 10^3/uL (0.0-0.8); MONO % 6.9 % (2.0-8.0); NEUTROPHILS # 5.6 10^3/uL (1.5-8.5); NEUTROPHILS % 59.9 % (36.0-66.0); PLATELET COUNT, AUTOMATED 401 10^3/uL (150-450)
[2025-06-11 10:04] LABS: ALT/SGPT 27.0 U/L (7.0-40); AST/SGOT 26.0 U/L (<34); CALCIUM LEVEL 9.7 MG/DL (8.5-10.1); CARBON DIOXIDE LEVEL 31.0 MMOL/L (20-31); CHLORIDE LEVEL 105.0 MMOL/L (98-107); CHOLESTEROL LEVEL 215.0 MG/DL (<200); CHOLESTEROL RISK RATIO 3.19 (<5); CREATININE FOR GFR 0.84 MG/DL (0.55-1.30); GLOMERULAR FILTRATION RATE 83.0 (>51); LDL CHOLESTEROL 113.1 MG/DL (<100); NON-HDL-C 147.7 MG/DL; POTASSIUM SERUM 4.3 MMOL/L (3.5-5.1); SODIUM LEVEL 146.0 MMOL/L (136-145); TRIGLYCERIDES LEVEL 173.0 MG/DL (<150)
[2025-06-11 10:06] LABS: FREE T4 1.09 NG/DL (0.89-1.76)
[2025-06-11 10:28] LABS: ESTIMATED AVERAGE GLUCOSE 108.0 MG/DL (60-110)
== END ==
LOC: M LAB 08:17
PROVIDERS: ATTEND Registered Nurse
DX: Z00.00 Encounter for general adult medical examination without abnormal findings (principal)

== ENCOUNTER 2025-09-29 10:13 | Emergency (ER) | payer OTHER ==
[~2025-09-29] VITALS: Ht 175.3 cm; Wt 85.7 kg
[2025-09-29 12:09] LABS: KETONE, URINE AUTO RFX NEGATIVE (NEGATIVE); LEUKOCYTE ESTERASE UR AUTO RFX NEGATIVE (NEGATIVE); MUCUS, URINE RFX SMALL (NEGATIVE); NITRITE, URINE AUTO RFX NEGATIVE (NEGATIVE); RBC, URINE AUTO RFX 3 /HPF (0-3); SQUAM EPITHELIAL CELL UR AURFX 0 /HPF (0-6); WBC, URINE AUTO RFX 0 /HPF (0-3)
[2025-09-29 12:10] LABS: BASO # 0.1 10^3/uL (0.0-0.2); BASO % 1.0 % (0.0-1.0); EOS # 0.1 10^3/uL (0.0-0.5); EOS % 0.7 % (0.0-3.0); LYMPH # 3.7 10^3/uL (1.5-5.0); LYMPH % 29.9 % (24.0-44.0); MONO # 0.8 10^3/uL (0.0-0.8); MONO % 6.5 % (2.0-8.0); NEUTROPHILS # 7.7 10^3/uL (1.5-8.5); NEUTROPHILS % 61.6 % (36.0-66.0); PLATELET COUNT, AUTOMATED 409 10^3/uL (150-450)
[2025-09-29 12:39] LABS: ALT/SGPT 25.0 U/L (7.0-40); AST/SGOT 23.0 U/L (<34)
[2025-09-29 13:04] VITALS: TEMP 97.7
[2025-09-29] MEDS ORDERED: ISOVUE-370 76% 100 ML VIAL As Ordered ONE (16:36)
[2025-09-29 17:30] VITALS: BP 115/73; O2SAT 98
[2025-09-29] MEDS ORDERED: SIME1CAP4 PO (17:38)
== END 2025-09-29 18:04 | disposition home or self-care (01) ==
LOC: M ED 10:13
DX: R14.0 Abdominal distension (gaseous) (principal); K21.9 Gastro-esophageal reflux disease without esophagitis; Z90.49 Acquired absence of other specified parts of digestive tract; Z94.82 Intestine transplant status; K44.9 Diaphragmatic hernia without obstruction or gangrene; E27.9 Disorder of adrenal gland, unspecified
CPT/HCPCS: 36415; 74177; 80047; 80076; 81001; 83690; 85025; 99284; Q9967